=== PATIENT | female | born 1980 | race American Indian/Alaskan Native ===

== ENCOUNTER 2020-08-12 17:04 | Emergency (ER) | payer SELFPAY ==
[2020-08-12 17:32] VITALS: BP 185/100
== END 2020-08-12 18:00 | disposition left against medical advice (07) ==
LOC: ED 17:04
DX: R05 Cough (principal); R07.89 Other chest pain; Z53.21 Procedure and treatment not carried out due to patient leaving prior to being seen by health care provider